=== PATIENT | female | born 1925 | race Caucasian/White ===

== ENCOUNTER → 2016-11-05 | Outpatient (CLI) | payer OTHER ==
[~2016-11-05] MED LIST: ESCI10TA17 PO; ESTRADIOL PO; HYDR0.2C10 TOP; LEVO-217 PO; METO100T7 PO; PANT1TAB48 PO; ZOLP10TA PO
[2016-11-05 13:24] LABS: BASO % 0.3 %; BASO ABS # 0.02 K/uL (0-0.2); COMPLETE YES; HEMATOCRIT 32.5 % (37-47); LYMPH % 26.2 %; LYMPH ABS # 1.55 K/uL (1.2-3.4); MEAN CELL VOLUME 97.9 fL (80-100); MEAN CORPUSCULAR HGB CONC 34.8 g/dl (32-36); MEAN PLATELET VOLUME 9.3 fL (7.4-10.4); MONO % 10.6 %; NEUT % 61.9 %; PLATELET COUNT 160 K/uL (130-400); RED BLOOD COUNT 3.32 M/uL (4.2-5.4); WHITE BLOOD COUNT 5.92 K/uL (4.8-10.8)
[2016-11-05 14:43] LABS: ALT/SGPT 20 U/L (12-78); AST/SGOT 16 U/L (15-37); BLOOD UREA NITROGEN 17 mg/dl (7-18); BUN/CREATININE RATIO 18.1 (10-20); CARBON DIOXIDE 28 mmol/L (21-32); CHLORIDE 99 mmol/L (98-107); CREATININE 0.94 mg/dl (0.60-1.20); GLUCOSE 69 mg/dl (70-99); POTASSIUM 4.6 mmol/L (3.5-5.1); SODIUM 133 mmol/L (136-145)
[2016-11-05 14:55] LABS: ALB/GLOB RATIO 1.1 (0.9-2); ALKALINE PHOSPHATASE 83 U/L (45-117); CHOLESTEROL 160 mg/dl (0-200); CHOLESTEROL/HDL RATIO 2.5; FERRITIN 53.8 ng/ml (8.0-388.0); HDL CHOLESTEROL 65 mg/dl; LDL CHOLESTEROL CALCULATED 80 mg/dl; TRIGLYCERIDES 76 mg/dl (0-150); VERY LOW DENSITY LIPOPROT CALC 15 mg/dl
== END | disposition home or self-care (01) ==
LOC: C.LABBC 12:21
PROVIDERS: ATTEND Internal Medicine
DX: E04.1 Nontoxic single thyroid nodule (principal)

== ENCOUNTER → 2017-04-23 | Outpatient (CLI) | payer OTHER | END | disposition home or self-care (01) | LOC: C.PAPS 14:11 | PROVIDERS: ATTEND Obstetrics & Gynecology | DX: Z12.4 Encounter for screening for malignant neoplasm of cervix (principal) ==

== ENCOUNTER 2017-06-15 09:27 | Observation (INO) | payer OTHER ==
[~2017-06-15] VITALS: Ht 152.4 cm; Wt 60.0 kg
[~2017-06-15 09:27] MED LIST changes: +PANT1TAB3 PO; -PANT1TAB48 PO
[2017-06-15] MEDS ORDERED: ALBUT/IPRATROP 3MG/0.5MG NEB 3 ML VIAL INH STA (09:54)
[2017-06-15] MEDS ORDERED: SODIUM CHLORIDE 0.9% 500ML 500 ML IV STA (09:54)
[2017-06-15] MEDS ORDERED: ONDANSETRON INJ 2 MG/ML 2 ML VIAL IV STA (09:59)
[2017-06-15] MEDS ORDERED: FAMOTIDINE 20MG/5ML IV PUSH IV STA (09:59)
--- NOTE | 2017-06-15 10:10 | DIAGNOSTIC IMAGING REPORT ---
CHEST ONE VIEW PORTABLE HISTORY: 89 years-old Female CHEST PAIN acute atypical chest pain COMPARISON: Chest radiographs 06/18/2010 TECHNIQUE: Portable AP view of the chest FINDINGS: Cardiomediastinal and hilar silhouettes are within normal limits. Calcified left hilar lymph nodes. Atherosclerosis of the aorta. The patient is slightly rotated. No pneumothorax, pleural effusion, focal airspace consolidation or overt pulmonary edema. Subsegmental left basilar opacities suggest atelectasis or scarring. Bones of the chest appear grossly intact. IMPRESSION: No acute cardiopulmonary process. The above report was generated using voice recognition software. It may contain grammatical, syntax or spelling errors. Electronically signed by: Rahul Marti M.D. 06/15/2017 10:09 AM Dictated Date/Time: 06/15/2017 10:07 AM
[2017-06-15 10:26] LABS: BASO % 0.1 %; BASO ABS # 0.01 K/uL (0-0.2); COMPLETE YES; EOS % 0.1 %; HEMATOCRIT 30.4 % (37-47); IG% 0.5 %; LYMPH % 18.3 %; LYMPH ABS # 1.51 K/uL (1.2-3.4); MEAN CELL VOLUME 93.8 fL (80-100); MEAN CORPUSCULAR HEMOGLOBIN 34.6 pg (25-34); MEAN CORPUSCULAR HGB CONC 36.8 g/dl (32-36); MEAN PLATELET VOLUME 8.3 fL (7.4-10.4); MONO % 10.5 %; NEUT % 70.5 %; PLATELET COUNT 207 K/uL (130-400); RED BLOOD COUNT 3.24 M/uL (4.2-5.4); WHITE BLOOD COUNT 8.27 K/uL (4.8-10.8)
--- NOTE | 2017-06-15 10:26 | EMERGENCY ROOM VISIT NOTE ---
History Report prepared by Yayo: Reyna Rosales Under the Supervision of: Dr. Rakan Johnston M.D. First contact with patient: 09:52 Chief Complaint: RESPIRATORY PROBLEMS Stated Complaint: PNEUMONIA Nursing Triage Summary: Relates that she was diagnosed with pneumonia yesterday when she went to Dr. Pradip che. She relates that she did not have an xray. She was placed on Levaquin and had one dose. She does not feel better. She relates that she began having difficulty approximately 2 weeks prior and has yellow thick secretions. Her sao2 is 99% on RA. 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 She notes productive cough with yellow sputum, congestion, and intermittent fevers. She denies diarrhea. The patient was recently seen by her PCP yesterday and was diagnosed with pneumonia and prescribed antibiotics. The patient notes that she feels worse than yesterday. She notes the antibiotics made her sick. The patient is hard of hearing. She denies a history of smoking. She denies a history of CHF. She is not taking any blood thinners. The patient has a history of atrial fibrillation. 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 Review of Systems See HPI for pertinent positives and negatives. A total of ten systems were reviewed and were otherwise negative. Past Medical & Surgical Medical Problems: (1) Atrial fibrillation (2) Hyponatremia (3) Hypothyroidism (4) Stomach problems Surgical Problems: (1) H/O: hysterectomy Family History Heart disease Social History Smoking Status: Never Smoker Smokeless Tobacco Use: No Alcohol Use: none Drug Use: none Housing Status: lives with family Occupation Status: unemployed Current/Historical Medications Scheduled Aspirin (Aspirin Ec), 81 MG PO DAILY Escitalopram (Lexapro), 10 MG PO DAILY Estradiol (Estradiol), 0.5 MG PO DAILY Levofloxacin (Levaquin), 750 MG PO DAILY Levothyroxine Sodium (Synthroid), 50 MCG PO DAILY Metoprolol Succ (Toprol Xl) (Toprol-Xl ), 150 MG PO QAM Multivitamin (Multivitamin), 1 TAB PO DAILY Pantoprazole (Protonix), 40 MG PO DAILY Zolpidem Tartrate (Ambien), 5 MG PO HS Allergies Coded Allergies: Sulfa Drugs (Unverified Allergy, Mild, HIVES, 06/15/17) Hydrocortisone (Verified Allergy, Unknown, 06/15/17) Ibuprofen (Verified Allergy, Unknown, 06/15/17) Penicillins (Verified Allergy, Unknown, 06/15/17) Physical Exam Vital Signs Date Time Temp Pulse Resp B/P (MAP) Pulse Ox O2 Delivery O2 Flow Rate FiO2 06/15/17 13:01 80 20 151/83 99 Room Air 06/15/17 12:40 98 Room Air 06/15/17 11:45 76 20 171/86 98 06/15/17 09:44 100 Room Air 06/15/17 09:44 99 Room Air 06/15/17 09:43 66 06/15/17 09:29 36.3 71 18 162/74 96 Room Air Physical Exam GENERAL: Awake, alert, uncomfortable-appearing, in no distress HENT: Normocephalic, atraumatic. Oropharynx unremarkable. EYES: Normal conjunctiva. Sclera non-icteric. NECK: Supple. No nuchal rigidity. FROM. No JVD. RESPIRATORY: Scattered bronchi wheezes throughout. CARDIAC: Regular rate, normal rhythm. Extremities warm and well perfused. Pulses equal. ABDOMEN: Soft, non-distended. No tenderness to palpation. No rebound or guarding. No masses. RECTAL: Deferred. MUSCULOSKELETAL: Chest examination reveals no tenderness. The back is symmetrical on inspection without obvious abnormality. There is no CVA tenderness to palpation. No joint edema. LOWER EXTREMITIES: Calves are equal size bilaterally and non-tender. No edema. No discoloration. NEURO: Normal sensorium. No sensory or motor deficits noted. SKIN: No rash or jaundice noted. Medical Decision & Procedures ER Provider Diagnostic Interpretation: Radiology results as stated below per my review and radiologist interpretation: CHEST ONE VIEW PORTABLE HISTORY: 89 years-old Female CHEST PAIN acute atypical chest pain COMPARISON: Chest radiographs 06/18/2010 TECHNIQUE: Portable AP view of the chest FINDINGS: Cardiomediastinal and hilar silhouettes are within normal limits. Calcified left hilar lymph nodes. Atherosclerosis of the aorta. The patient is slightly rotated. No pneumothorax, pleural effusion, focal airspace consolidation or overt pulmonary edema. Subsegmental left basilar opacities suggest atelectasis or scarring. Bones of the chest appear grossly intact. IMPRESSION: No acute cardiopulmonary process. The above report was generated using voice recognition software. It may contain grammatical, syntax or spelling errors. Electronically signed by: Rahul Marti M.D. 06/15/2017 10:09 AM Dictated Date/Time: 06/15/2017 10:07 AM Laboratory Results 06/15/17 10:15 Red Blood Count 3.24, Mean Corpuscular Volume 93.8, Mean Corpuscular Hemoglobin 34.6, Mean Corpuscular Hemoglobin Concent 36.8, Mean Platelet Volume 8.3, Neutrophils (%) (Auto) 70.5, Lymphocytes (%) (Auto) 18.3, Monocytes (%) (Auto) 10.5, Eosinophils (%) (Auto) 0.1, Basophils (%) (Auto) 0.1, Neutrophils # (Auto ) 5.83, Lymphocytes # (Auto) 1.51, Monocytes # (Auto) 0.87, Eosinophils # (Auto ) 0.01, Basophils # (Auto) 0.01 06/15/17 10:15 Test 06/15/17 10:15 06/15/17 10:25 06/15/17 12:00 White Blood Count 8.27 K/uL (4.8-10.8) Red Blood Count 3.24 M/uL (4.2-5.4) Hemoglobin 11.2 g/dL (12.0-16.0) Hematocrit 30.4 % (37-47) Mean Corpuscular Volume 93.8 fL (80-100) Mean Corpuscular Hemoglobin 34.6 pg (25-34) Mean Corpuscular Hemoglobin Concent 36.8 g/dl (32-36) Platelet Count 207 K/uL (130-400) Mean Platelet Volume 8.3 fL (7.4-10.4) Neutrophils (%) (Auto) 70.5 % Lymphocytes (%) (Auto) 18.3 % Monocytes (%) (Auto) 10.5 % Eosinophils (%) (Auto) 0.1 % Basophils (%) (Auto) 0.1 % Neutrophils # (Auto) 5.83 K/uL (1.4-6.5) Lymphocytes # (Auto) 1.51 K/uL (1.2-3.4) Monocytes # (Auto) 0.87 K/uL (0.11-0.59) Eosinophils # (Auto) 0.01 K/uL (0-0.5) Basophils # (Auto) 0.01 K/uL (0-0.2) RDW Standard Deviation 43.4 fL (36.4-46.3) RDW Coefficient of Variation 12.6 % (11.5-14.5) Immature Granulocyte % (Auto) 0.5 % Immature Granulocyte # (Auto) 0.04 K/uL (0.00-0.02) Anion Gap 8.0 mmol/L (3-11) Est Creatinine Clear Calc Drug Dose 36.3 ml/min Estimated GFR () 70.4 Estimated GFR (Non- 60.7 BUN/Creatinine Ratio 10.5 (10-20) Osmolality 255 mOsm/kg (280-300) Calcium Level 8.8 mg/dl (8.5-10.1) Total Bilirubin 0.8 mg/dl (0.2-1) Direct Bilirubin 0.2 mg/dl (0-0.2) Aspartate Amino Transf (AST/SGOT) 17 U/L (15-37) Alanine Aminotransferase (ALT/SGPT) 14 U/L (12-78) Alkaline Phosphatase 73 U/L (45-117) Troponin I < 0.015 ng/ml (0-0.045) Pro-B-Type Natriuretic Peptide 3947 pg/ml (0-1800) Total Protein 7.0 gm/dl (6.4-8.2) Albumin 2.9 gm/dl (3.4-5.0) Lipase 74 U/L (73-393) Thyroid Stimulating Hormone (TSH) 2.190 uIu/ml (0.300-4.500) Influenza Type A (RT-PCR) Neg for Influ A (NEG) Influenza Type A Antigen Neg for Influ A (NEG) Influenza Type B Antigen Neg for Influ B (NEG) Influenza Type B (RT-PCR) Neg for Influ B (NEG) Urine Color DK YELLOW Urine Appearance CLEAR (CLEAR) Urine pH 7.5 (4.5-7.5) Urine Specific [place] 1.013 (1.000-1.030) Urine Protein NEG (NEG) Urine Glucose (UA) NEG (NEG) Urine Ketones TRACE (NEG) Urine Occult Blood NEG (NEG) Urine Nitrite NEG (NEG) Urine Bilirubin NEG (NEG) Urine Urobilinogen NEG (NEG) Urine Leukocyte Esterase NEG (NEG) Laboratory results reviewed by me Medications Administered Medications (Trade) Dose Ordered Sig/Maria Ines Route Start Time Stop Time Status Last Admin Dose Admin Sodium Chloride 500 ml @ 999 mls/hr Q31M STAT IV 06/15/17 09:54 06/15/17 10:24 DC 06/15/17 09:54 999 MLS/HR Albuterol/ Ipratropium (Duoneb) 3 ml NOW STAT INH 06/15/17 09:54 06/15/17 09:59 DC 06/15/17 10:20 3 ML Ondansetron HCl (Zofran Inj) 4 mg NOW STAT IV 06/15/17 09:59 06/15/17 10:01 DC 06/15/17 10:20 4 MG Famotidine (Pepcid 20mg Iv Push) 20 mg NOW STAT IV 06/15/17 09:59 06/15/17 10:01 DC 06/15/17 10:20 20 MG Azithromycin (Zithromax Tab) 500 mg NOW STAT PO 06/15/17 12:16 06/15/17 12:17 DC 06/15/17 12:31 500 MG ECG Indication: SOB/dyspnea Rate (beats per minute): 75 Rhythm: atrial fibrillation Findings: no acute ischemic change, other (Normal axis.) Change: Similar when compared to 06/18/2010. ED Course 0952: The patient was evaluated in room B12B. A complete history and physical exam was performed. 1200: I reassessed the patient at this time. She is feeling better and resting comfortably. 1225: I spoke with Dr. Nash, hospitalist. We discussed the patients case. The patient will be evaluated by the [facility] for further management. 1243: I reassessed the patient at this time. She is feeling better and resting comfortably. We discussed her history of arrhythmia; she confirmed she is not on any blood thinners. Medical Decision I reviewed the patient's past medical history, medications, and the nursing notes as described above. The patient's presentation and history were concerning for PNA, Bronchitis, ACS CHF, and PE. The patient is an 89-year-old woman with a past medical history of A. fib not on Coumadin who presents emergency Department with persistent cough congestion shortness of breath after being seen at her PCPs yesterday and started on Levaquin presumptively for pneumonia per history of present illness. Arrival the patient is fatigued appearing but in no acute distress, afebrile stable vital signs. EKG shows rate controlled A. fib no signs of acute ischemia. Labs are notable for a sodium of 123. Otherwise patients chest x-ray is clear. BNP 3000 likely related to the patients A. fib. Given the patient's cough and congestion will treat for bronchitis with Azithromycin. I d/w patient her Afib and denies every being recommended anticoagulation. However, family report that the patient walks with a cane and is a significant fall risk. Given this, will defer decision to admitting after further discussion with patient and family. Case was discussed with Dr. Nash, [facility] hospitalist, who will admit the patient for further management. Medication Reconcilliation Current Medication List: was personally reviewed by me Blood Pressure Screening Patient's blood pressure: Elevated blood pressure Blood pressure disposition: Elevated BP felt to be situational Consults Time Called: 1223 Consulting Physician: Dr. Nash, hospitalist Returned Call: [address] Nash hospitalist. We discussed the patients case. The patient will be evaluated by the [facility] for further management. Impression Primary Impression: Hyponatremia Additional Impression: Bronchitis Scribe Attestation The scribe's documentation has been prepared under my direction and personally reviewed by me in its entirety. I confirm that the note above accurately reflects all work, treatment, procedures, and medical decision making performed by me. Departure Information Dispostion Being Evaluated By Hospitalist Referrals Steven Urrutia M.D. (PCP) Patient Instructions My [facility] Problem Qualifiers
[2017-06-15 10:44] LABS: ALT/SGPT 14 U/L (12-78); BLOOD UREA NITROGEN 9 mg/dl (7-18); BUN/CREATININE RATIO 10.5 (10-20); CALCIUM 8.8 mg/dl (8.5-10.1); CARBON DIOXIDE 23 mmol/L (21-32); CHLORIDE 93 mmol/L (98-107); CREATININE 0.85 mg/dl (0.60-1.20); GLUCOSE 103 mg/dl (70-99); POTASSIUM 4.1 mmol/L (3.5-5.1); SODIUM 123 mmol/L (136-145)
[2017-06-15 10:53] LABS: ALKALINE PHOSPHATASE 73 U/L (45-117); AST/SGOT 17 U/L (15-37)
[2017-06-15] MEDS ORDERED: MULT-506 PO (11:05)
[2017-06-15] MEDS ORDERED: ESTR0.5T3 PO (11:05)
[2017-06-15] MEDS ORDERED: ZOLP5TAB PO (11:05)
[2017-06-15] MEDS ORDERED: LEVO1TAB35 PO (11:05)
[2017-06-15] MEDS ORDERED: ESCI10TA17 PO (11:05)
[2017-06-15] MEDS ORDERED: LEVO50TA PO (11:05)
[2017-06-15] MEDS ORDERED: ASPI81TA28 PO (11:05)
[2017-06-15] MEDS ORDERED: METO100T44 PO (11:05)
[2017-06-15] MEDS ORDERED: PANT40TA PO (11:05)
[2017-06-15 11:52] LABS: INFLUENZA A PCR Neg for Influ A (NEG); INFLUENZA B PCR Neg for Influ B (NEG)
[2017-06-15 12:08] LABS: URINE APPEARANCE CLEAR (CLEAR); URINE BILIRUBIN NEG (NEG); URINE COLOR DK YELLOW; URINE NITRITE NEG (NEG); URINE PH 7.5 (4.5-7.5); URINE SPECIFIC GRAVITY 1.013 (1.000-1.030); UROBILINOGEN NEG (NEG); ZZUR CULT IF INDIC CLEAN CATCH NO
[2017-06-15 12:11] LABS: MANUAL MICROSCOPIC REQUIRED? NO; REVIEW REQ? NO
[2017-06-15] MEDS ORDERED: AZITHROMYCIN 250 MG TAB PO STA (12:16)
[2017-06-15 12:40] VITALS: O2SAT 98; Ht 152.4 cm; Wt 60.0 kg
[2017-06-15] MEDS ORDERED: LEVOFLOXACIN 750 MG TAB PO ONE (13:48)
[2017-06-15] MEDS ORDERED: POLYETHYLENE (MIRALAX) 17 GM PACK PO PRN (14:00)
[2017-06-15] MEDS ORDERED: ACETAMINOPHEN 325 MG TAB PO PRN (14:00)
[2017-06-15] MEDS ORDERED: ALUMINUM/MAGNESIUM/SIMETH (MAALOX MAX) 30 ML UDC PO PRN (14:00)
[2017-06-15] MEDS ORDERED: ONDANSETRON INJ 2 MG/ML 2 ML VIAL IV PRN (14:00)
[2017-06-15] MEDS ORDERED: MAGNESIUM HYDROXIDE SUSP 30 ML UDC PO PRN (14:00)
[2017-06-15] MEDS ORDERED: IV FLUIDS COMPLETED PRN (14:15)
--- NOTE | 2017-06-15 14:26 | History and Physical ---
History & Physical Date & Time of Service: Jun 15, 2017 at 14:01 Chief Complaint: Pneumonia Primary Care Physician: Steven Urrutia M.D. History of Present Illness Source: patient, family Patient is an 89 year old female that presented to [facility] with shortness of breath. She notes that she has been more short of breath with exertion over the past two weeks. This has been associated with a productive cough consisting of yellow sputum. She was seen by Dr. Urrutia's PA yesterday and was prescribed levofloxacin for pneumonia but she notes that this made her feel sick. Over the past two weeks she has had nasal congestion, ear fullness, fatigue and weakness. She has had a poor appetite and has been drinking >8 glasses of water daily. In the ED her CXR was normal, she was afebrile and she had no WCC. She was found to have a Na of 123 and therefore the hospitalist team were consulted for admission. Past Medical/Surgical History Medical Problems: (1) Atrial fibrillation Status: Chronic (2) Hypothyroidism Status: Chronic (3) Stomach problems Status: Resolved Surgical Problems: (1) H/O: hysterectomy Status: Resolved Family History Heart disease Social History Smoking Status: Never Smoker Smokeless Tobacco Use: No Alcohol Use: none Drug Use: none Housing status: lives with family Occupational Status: unemployed Immunizations History of Tetanus Vaccine?: No History of Pneumococcal: No History of Hepatitis B Vaccine: No Multi-Drug Resistant Organisms History of MDRO: No Allergies Coded Allergies: Sulfa Drugs (Unverified Allergy, Mild, HIVES, 06/15/17) Hydrocortisone (Verified Allergy, Unknown, 06/15/17) Ibuprofen (Verified Allergy, Unknown, 06/15/17) Penicillins (Verified Allergy, Unknown, 06/15/17) Home Medications Scheduled Aspirin (Aspirin Ec), 81 MG PO DAILY Escitalopram (Lexapro), 10 MG PO DAILY Estradiol (Estradiol), 0.5 MG PO DAILY Levofloxacin (Levaquin), 750 MG PO DAILY Levothyroxine Sodium (Synthroid), 50 MCG PO DAILY Metoprolol Succ (Toprol Xl) (Toprol-Xl ), 150 MG PO QAM Multivitamin (Multivitamin), 1 TAB PO DAILY Pantoprazole (Protonix), 40 MG PO DAILY Zolpidem Tartrate (Ambien), 5 MG PO HS Review of Systems Constitutional: + fever, + weakness, + fatigue, No sweats, No weight loss Eyes: No worsening of vision, No eye pain ENT: + hearing loss (chronic), + nasal symptoms, No trouble swallowing Respiratory: + cough, + sputum, + dyspnea on exertion, No hemoptysis Cardiovascular: No chest pain, No claudication, No palpitations Abdomen: + nausea, No pain, No vomiting, No diarrhea, No constipation, No GI bleeding Musculoskeletal: No joint pain, No muscle pain Genitourinary - Female: No dysuria, No urinary frequency, No urinary urgency Endocrine: + fatigue, No excessive thirst, No excessive urination Integumentary: No rash, No itch, No new/changing skin lesions Physical Exam Vital Signs Date Time Temp Pulse Resp B/P (MAP) Pulse Ox O2 Delivery O2 Flow Rate FiO2 06/15/17 13:01 80 20 151/83 99 Room Air 06/15/17 12:40 98 Room Air 06/15/17 11:45 76 20 171/86 98 06/15/17 09:44 100 Room Air 06/15/17 09:44 99 Room Air 06/15/17 09:43 66 06/15/17 09:29 36.3 71 18 162/74 96 Room Air General Appearance: WD/WN, no apparent distress Eyes: PERRL, sclerae normal ENT: hearing grossly normal, TMs normal, pharynx normal Neck: supple, no adenopathy, no JVD, no carotid bruits, trachea midline Respiratory/Chest: chest non-tender, no respiratory distress, no accessory muscle use, + rhonchi (diffuse rhonchi bilaterally) Cardiovascular: no edema, no murmur, normal peripheral pulses, + irregularly irregular Abdomen/GI: normal bowel sounds, non tender, soft Extremities/Musculoskelatal: normal inspection, no calf tenderness, no pedal edema, non-tender Neurologic/Psych: alert, normal mood/affect, oriented x 3 Skin: normal color, + pertinent finding (normal skin turgor, cap refill<2 seconds) Diagnostics Laboratory Results Results Past 24 Hours Test 06/15/17 10:15 06/15/17 10:25 06/15/17 12:00 Range/Units White Blood Count 8.27 4.8-10.8 K/uL Red Blood Count 3.24 4.2-5.4 M/uL Hemoglobin 11.2 12.0-16.0 g/dL Hematocrit 30.4 37-47 % Mean Corpuscular Volume 93.8 80-100 fL Mean Corpuscular Hemoglobin 34.6 25-34 pg Mean Corpuscular Hemoglobin Concent 36.8 32-36 g/dl Platelet Count 207 130-400 K/uL Mean Platelet Volume 8.3 7.4-10.4 fL Neutrophils (%) (Auto) 70.5 % Lymphocytes (%) (Auto) 18.3 % Monocytes (%) (Auto) 10.5 % Eosinophils (%) (Auto) 0.1 % Basophils (%) (Auto) 0.1 % Neutrophils # (Auto) 5.83 1.4-6.5 K/uL Lymphocytes # (Auto) 1.51 1.2-3.4 K/uL Monocytes # (Auto) 0.87 0.11-0.59 K/uL Eosinophils # (Auto) 0.01 0-0.5 K/uL Basophils # (Auto) 0.01 0-0.2 K/uL RDW Standard Deviation 43.4 36.4-46.3 fL RDW Coefficient of Variation 12.6 11.5-14.5 % Immature Granulocyte % (Auto) 0.5 % Immature Granulocyte # (Auto) 0.04 0.00-0.02 K/uL Sodium Level 123 136-145 mmol/L Potassium Level 4.1 3.5-5.1 mmol/L Chloride Level 93 98-107 mmol/L Carbon Dioxide Level 23 21-32 mmol/L Anion Gap 8.0 3-11 mmol/L Blood Urea Nitrogen 9 7-18 mg/dl Creatinine 0.85 0.60-1.20 mg/dl Est Creatinine Clear Calc Drug Dose 36.3 ml/min Estimated GFR () 70.4 Estimated GFR (Non- 60.7 BUN/Creatinine Ratio 10.5 10-20 Random Glucose 103 70-99 mg/dl Calcium Level 8.8 8.5-10.1 mg/dl Total Bilirubin 0.8 0.2-1 mg/dl Direct Bilirubin 0.2 0-0.2 mg/dl Aspartate Amino Transf (AST/SGOT) 17 15-37 U/L Alanine Aminotransferase (ALT/SGPT) 14 12-78 U/L Alkaline Phosphatase 73 45-117 U/L Troponin I < 0.015 0-0.045 ng/ml Pro-B-Type Natriuretic Peptide 3947 0-1800 pg/ml Total Protein 7.0 6.4-8.2 gm/dl Albumin 2.9 3.4-5.0 gm/dl Lipase 74 73-393 U/L Influenza Type A (RT-PCR) Neg for Influ A NEG Influenza Type A Antigen Neg for Influ A NEG Influenza Type B Antigen Neg for Influ B NEG Influenza Type B (RT-PCR) Neg for Influ B NEG Urine Color DK YELLOW Urine Appearance CLEAR CLEAR Urine pH 7.5 4.5-7.5 Urine Specific [place] 1.013 1.000-1.030 Urine Protein NEG NEG Urine Glucose (UA) NEG NEG Urine Ketones TRACE NEG Urine Occult Blood NEG NEG Urine Nitrite NEG NEG Urine Bilirubin NEG NEG Urine Urobilinogen NEG NEG Urine Leukocyte Esterase NEG NEG CXR normal EKG Atrial fibrillation Impression Assessment and Plan 89 year old female currently being treated as an outpatient for pneumonia was brought to the ED for shortness of breath and was found to have a sodium of 123. She is euvolemic on examination. Euvolemic Hyponatremia - Differential includes primary polydypsia, hypothyroidism, SIADH, glucocorticoid insufficiency - will order serum osm, urine osm and urine sodium levels - will fluid restrict currently to 1500ml due to euvolemic state - repeat sodium in the morning Community Acquired Pneumonia - CXR normal here but patient short of breath and bringing up green sputum - diagnosed as outpatient - finish azithromycin 250mg for 4 more days to finish 5 day course - prescribe flonase nasal spray and zyrtec 10mg Atrial Fibrillation (rate controlled) - continue metoprolol - on aspirin - may need to consider warfarin as outpatient as [id number] score of 3 Hypothyroidism - continue levothyroxine and check TSH Depression - continue lexapro Gerd - continue pantoprazole Insomnia - continue ambien DVT prophylaxis - lovenox 40subq Dispo: lives with daughter and is able to do majority of chores at home without help from others, if sodium corrects then patient will be able to go home tomorrow Level of Care Med/Surg Advanced Directives Existing Living Will: Yes Existing Power of Paper Deliverer: Yes VTE Prophylaxis VTE Risk Assessment Done? Y/N: Yes Risk Level: Low Given or contraindicated: Enoxaparin (Lovenox)SQ
[2017-06-15 15:00] VITALS: BP 162/79; PULSE 86; TEMP 36.7; O2SAT 96; O2SAT 97
[2017-06-15] MEDS ORDERED: PNEUMOCOCCAL ADMINISTRATION CHARGE ONE (15:15)
[2017-06-15] MEDS ORDERED: PNEUMOCOCCAL POLYSACCHARIDES 25 MCG/0.5 ML VIAL/SYR IM. ONE (15:15)
[2017-06-15 15:57] LABS: PROTHROMBIN TIME (PATIENT) 10.7 SECONDS (9.0-12.0)
[2017-06-15] MEDS: CETIRIZINE HCL 10 MG TAB PO ONE ×2 (16:08→17:33)
[2017-06-15] MEDS ORDERED: ENOXAPARIN 30 MG/0.3 ML SYR SQ SCH (18:00)
[2017-06-15] MEDS: FLUTICASONE PROPIONATE NA SPR 16 GM BTL SCH (20:26)
[2017-06-15] MEDS ORDERED: ZOLPIDEM TARTRATE 5 MG TAB PO SCH (21:00)
[2017-06-16 00:21] VITALS: BP 159/78; PULSE 81; TEMP 37.1; O2SAT 95
[2017-06-16] MEDS ORDERED: LEVOTHYROXINE 50 MCG TAB PO SCH ×2 (06:30→09:00)
[2017-06-16 07:07] VITALS: BP 169/84; PULSE 83; TEMP 37.2; O2SAT 96
[2017-06-16 07:15] LABS: HEMATOCRIT 32.2 % (37-47); MEAN CELL VOLUME 95.3 fL (80-100); MEAN CORPUSCULAR HEMOGLOBIN 33.4 pg (25-34); MEAN CORPUSCULAR HGB CONC 35.1 g/dl (32-36); MEAN PLATELET VOLUME 8.4 fL (7.4-10.4); PLATELET COUNT 240 K/uL (130-400); RED BLOOD COUNT 3.38 M/uL (4.2-5.4); WHITE BLOOD COUNT 6.82 K/uL (4.8-10.8)
--- NOTE | 2017-06-16 07:31 | Family Medicine Progress Note ---
Progress Note Date of Service Jun 16, 2017. Subjective Pt evaluation today including: conversation w/ patient, physical exam, chart review, lab review Constitutional: No fever, No chills, No sweats ENT: No hearing loss Respiratory: No cough, No sputum, No wheezing, No shortness of breath Cardiovascular: No chest pain Abdomen: No pain, No nausea, No vomiting, No diarrhea Female : No dysuria Psychiatric: No depression symptoms Endo: No fatigue Objective Physical Exam General Appearance: WD/WN, no apparent distress Eyes: PERRL, EOMI Respiratory/Chest: chest non-tender, lungs clear, normal breath sounds, no respiratory distress, no accessory muscle use Cardiovascular: no edema, no gallop, no JVD, no murmur, + irregularly irregular Abdomen: normal bowel sounds, non tender, soft, no organomegaly, no pulsatile mass Extremities: normal range of motion, non-tender, normal inspection, no pedal edema, no calf tenderness 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
[2017-06-16 07:32] LABS: BUN/CREATININE RATIO 8.8 (10-20); CALCIUM 8.8 mg/dl (8.5-10.1); CREATININE 0.82 mg/dl (0.60-1.20); MAGNESIUM 1.8 mg/dl (1.8-2.4); POTASSIUM 3.6 mmol/L (3.5-5.1)
[2017-06-16 07:33] LABS: PHOSPHORUS 3.3 mg/dl (2.5-4.9)
[2017-06-16 08:00] VITALS: O2SAT 96
[2017-06-16] MEDS: FLUTICASONE PROPIONATE NA SPR 16 GM BTL SCH (08:05)
[2017-06-16] MEDS ORDERED: MULTIVITAMIN TAB PO SCH (09:00)
[2017-06-16] MEDS ORDERED: ESTRADIOL 1 MG TAB PO SCH (09:00)
[2017-06-16] MEDS ORDERED: PANTOprazole SOD 40 MG TAB PO SCH (09:00)
[2017-06-16] MEDS ORDERED: ESCITALOPRAM OXALATE 10 MG TAB PO SCH (09:00)
[2017-06-16] MEDS ORDERED: CETIRIZINE HCL 10 MG TAB PO SCH (09:00)
[2017-06-16] MEDS ORDERED: ASPIRIN 81 MG ECTAB PO SCH (09:00)
[2017-06-16] MEDS ORDERED: AZITHROMYCIN 250 MG TAB PO SCH (09:00)
[2017-06-16] MEDS ORDERED: METOPROLOL SUCC 50MG EXT REL TAB PO SCH (09:00)
[2017-06-16] MEDS ORDERED: LEVOFLOXACIN 750 MG TAB PO SCH (09:00)
--- NOTE | 2017-06-16 12:36 | ECHOCARDIOGRAM REPORT ---
*NOTICE TO RECEIVING CONSTITUTION PARTY AGENCY This information is strictly Confidential and protected under [place] law. [place] law prohibits you from making any further disclosure of this information unless further disclosure is expressly permitted by the written consent of the person to whom it pertains or is authorized by law. A general authorization for the release of medical or other information is not sufficient for this purpose. Hospital accepts no responsibility if the information is made available to any other person, INCLUDING THE PATIENT. Interpretation Summary * Name: QAMAR LINARES Study Date: 06/15/2017 03:05 PM BP: 152/80 mmHg * Patient Location: .[id number]\W256\S\2 HR: 86 * : 1925 (M/d/yyyy) Gender: Female Height: 60 in * Age: 89 yrs Ethnicity: CA Weight: 132 lb * Ordering Physician: Gerald Nash * Referring Physician: Self, Referred * Performed By: Margaux Norris RDCS * * Reason For Study: AFIB * BSA: 1.6 m2 * -- Conclusions -- * Left ventricular systolic function is normal. * No regional wall motion abnormalities noted. * Ejection Fraction = 55-60%. * There is mild concentric left ventricular hypertrophy. * There is mild mitral regurgitation. Procedure Details * A complete two-dimensional transthoracic echocardiogram was performed (2D, M-mode, Doppler and color flow Doppler). Left Ventricle * The left ventricle is normal in size. * There is mild concentric left ventricular hypertrophy. * Ejection Fraction = 55-60%. * Left ventricular systolic function is normal. * No regional wall motion abnormalities noted. Right Ventricle * The right ventricle is not well visualized. * The right ventricular systolic function is normal as assessed by tricuspid annular plane systolic excursion (TAPSE) (normal >1.5 cm). Atria * The left atrium is mildly dilated. * Right atrial size is normal. * No ASD detected; PFO is not assessed. Mitral Valve * The mitral valve is grossly normal. * There is no mitral valve stenosis. * There is mild mitral regurgitation. Tricuspid Valve * The tricuspid valve is not well visualized, but is grossly normal. * There is no tricuspid stenosis. * There is mild tricuspid regurgitation. * Right ventricular systolic pressure is normal. Aortic Valve * The aortic valve is trileaflet. * The aortic valve opens well. * Aortic valve sclerosis mild, without significant aortic valvular stenosis. * Trace aortic regurgitation. Pulmonic Valve * The pulmonary valve is not well seen, but the Doppler examination is normal without significant regurgitation or stenosis. Great Vessels * The aortic root is normal size. * The pulmonary is not well visualized. Pericardium/Pleural * There is no pericardial effusion. Great Vessels * Normal inferior vena cava size and collapsability with sniff indicates a normal right atrial pressure of 3 mmHg MMode 2D Measurements and Calculations IVSd 1.1 cm IVSs 1.7 cm LVIDd 3.8 cm LVIDs 2.7 cm LVPWd 1.5 cm LVPWs 1.7 cm IVS/LVPW 0.69 FS 29.7 % EDV(Teich) 63.0 ml ESV(Teich) 26.8 ml EF(Teich) 57.5 % EDV(cubed) 56.0 ml ESV(cubed) 19.5 ml EF(cubed) 65.3 % % IVS thick 57.6 % % LVPW thick 10.6 % LV mass(C)d 172.1 grams LV mass(C)dI 110.0 grams/m\S\2 LV mass(C)s 166.8 grams LV mass(C)sI 106.6 grams/m\S\2 SV(Teich) 36.2 ml SI(Teich) 23.1 ml/m\S\2 SV(cubed) 36.6 ml SI(cubed) 23.4 ml/m\S\2 Ao root diam 2.7 cm Ao root area 5.7 cm\S\2 LA dimension 3.9 cm LA/Ao 1.4 LVAd ap4 19.6 cm\S\2 LVLd ap4 6.3 cm EDV(MOD-sp4) 51.8 ml EDV(sp4-el) 52.0 ml LVAs ap4 12.4 cm\S\2 LVLs ap4 5.3 cm ESV(MOD-sp4) 24.7 ml ESV(sp4-el) 24.6 ml EF(MOD-sp4) 52.4 % EF(sp4-el) 52.7 % LVAd ap2 22.5 cm\S\2 LVLd ap2 6.7 cm EDV(MOD-sp2) 62.3 ml EDV(sp2-el) 63.9 ml LVAs ap2 13.3 cm\S\2 LVLs ap2 5.5 cm ESV(MOD-sp2) 27.0 ml ESV(sp2-el) 26.9 ml EF(MOD-sp2) 56.6 % EF(sp2-el) 57.9 % LVLd %diff 6.3 % EDV(MOD-bp) 59.4 ml LVLs %diff 4.5 % ESV(MOD-bp) 26.0 ml EF(MOD-bp) 56.2 % SV(MOD-sp4) 27.2 ml SI(MOD-sp4) 17.4 ml/m\S\2 SV(MOD-sp2) 35.3 ml SI(MOD-sp2) 22.6 ml/m\S\2 SV(MOD-bp) 33.4 ml SI(MOD-bp) 21.4 ml/m\S\2 SV(sp4-el) 27.4 ml SI(sp4-el) 17.5 ml/m\S\2 SV(sp2-el) 37.0 ml SI(sp2-el) 23.7 ml/m\S\2 Doppler Measurements and Calculations MV E max jeannette 114.9 cm/sec MV dec time 0.24 sec Ao V2 max 150.7 cm/sec Ao max PG 9.1 mmHg Ao max PG (full) 4.5 mmHg AI max jeannette 386.5 cm/sec AI max PG 59.8 mmHg AI dec slope 217.7 cm/sec\S\2 AI P1/2t 520.0 msec LV V1 max PG 4.6 mmHg LV V1 max 106.8 cm/sec TR max jeannette 266.6 cm/sec
[2017-06-16 14:49] VITALS: BP 133/80; PULSE 73; TEMP 37.5; O2SAT 96
[2017-06-16] MEDS ORDERED: AZIT-57 PO (15:55)
--- NOTE | 2017-06-16 16:13 | Discharge Summary ---
Discharge Summary Date of Service Jun 16, 2017. Discharge Summary Admission Date: Jun 15, 2017 at 13:54 Discharge Date: Jun 16, 2017 Discharge Disposition: Home Principal Diagnosis: Pneumonia and Hyponatremia Immunizations: History of Tetanus Vaccine?: No History of Pneumococcal: No History of Hepatitis B Vaccine: No Procedures: ECHOCARDIOGRAM * Left ventricular systolic function is normal. * No regional wall motion abnormalities noted. * Ejection Fraction = 55-60%. * There is mild concentric left ventricular hypertrophy. * There is mild mitral regurgitation. CHEST ONE VIEW PORTABLE HISTORY: 89 years-old Female CHEST PAIN acute atypical chest pain COMPARISON: Chest radiographs 06/18/2010 TECHNIQUE: Portable AP view of the chest FINDINGS: Cardiomediastinal and hilar silhouettes are within normal limits. Calcified left hilar lymph nodes. Atherosclerosis of the aorta. The patient is slightly rotated. No pneumothorax, pleural effusion, focal airspace consolidation or overt pulmonary edema. Subsegmental left basilar opacities suggest atelectasis or scarring. Bones of the chest appear grossly intact. IMPRESSION: No acute cardiopulmonary process. Medication Reconciliation New Medications: Azithromycin (Azithromycin) 250 Mg Tab 250 MG PO QAM for 3 Days, #3 TAB Continued Medications: Aspirin (Aspirin Ec) 81 Mg Tab 81 MG PO DAILY Escitalopram (Lexapro) 10 Mg Tab 10 MG PO DAILY, TAB Estradiol (Estradiol) 0.5 Mg Tab 0.5 MG PO DAILY for 30 Days, #90 TAB 3 Refills Levothyroxine Sodium (Synthroid) 50 Mcg Tab 50 MCG PO DAILY, TAB Metoprolol Succ (Toprol Xl) (Toprol-Xl ) 100 Mg Tabcr 150 MG PO QAM, TAB Multivitamin (Multivitamin) Tab 1 TAB PO DAILY, TAB Pantoprazole (Protonix) 40 Mg Tab 40 MG PO DAILY, #30 TAB Zolpidem Tartrate (Ambien) 5 Mg Tab 5 MG PO HS, TAB Discontinued Medications: Levofloxacin (Levaquin) 750 Mg Tab 750 MG PO DAILY for 7 Days, #7 TAB STARTED 06/14/17 Discharge Exam The patient was seen and examined at bedside. No acute overnight events. Patient is resting comfortably in bed. Denies having any pain. Eating and urinating well. Patient is wondering when she can go home - she lives in [place] with her daughter. She feels good at her baseline. PCP is Dr. Urrutia. Understand we are treating a Pneumonia with Azithromycin. She is wondering if she can travel to [place] next week for [place] She understand the importance with outpatient follow up. Plan of care was described to the patient and all questions were answered. Constitutional: No fever, No chills, No sweats ENT: No hearing loss Respiratory: No cough, No sputum, No wheezing, No shortness of breath Cardiovascular: No chest pain Abdomen: No pain, No nausea, No vomiting, No diarrhea Female : No dysuria Psychiatric: No depression symptoms Endo: No fatigue Physical Exam General Appearance: WD/WN, no apparent distress Eyes: PERRL, EOMI Respiratory/Chest: chest non-tender, lungs clear, normal breath sounds, no respiratory distress, no accessory muscle use Cardiovascular: no edema, no gallop, no JVD, no murmur, + irregularly irregular Abdomen: normal bowel sounds, non tender, soft, no organomegaly, no pulsatile mass Extremities: normal range of motion, non-tender, normal inspection, no pedal edema, no calf tenderness Neurologic/Psychiatric: 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 Pt was being treated as an outpatient for pneumonia with Levoquin since 06/14/2017. Pt was found to have a sodium of 123 and was euvolemic on examination. Per patient she drinks 6-8 ounces of water per day. X-ray showed no infiltrate. Labs were significant for a BNP of 3900, TSH of 2.19, Urine osmolality was 230, urine sodium was 48 and serum osmolality was 255. Trops were negative. An echocardiogram was ordered which was grossly normal. We believe that the patient's symptoms were from a combination of pneumonia and hyponatremia from polydipsia. Patient was put on fluid restriction of 1500mL per day. On Hospital Day #1 the sodium was corrected to 128 and the patient showed clinical improvement. Per chart review pt appears to have chronically low sodium - maximum Na+ was 133 over multiple admissions in the past 10 years. Our physical therapist saw the patient and recommended the patient was able to go home on discharge. On discharge we are are recommending no more than 4 cups of water per day and scheduling PCP follow up with Purnima Leonardo PA-C on June 19 at 11: 00 am. Patient was additionally discharged on PO Azithromycin 250mg daily for the next 3 days for Pneumonia. We also noticed that the patient was not on anticoagulation for Atrial Fibrillation. The patient has had discussions with her PCP in the past about this she states but cannot remember the exact reason she was not on AC. We will defer to outpatient management of AC for Afib. Otherwise all home meds were continued on discharge. Total Time Spent: Greater than 30 minutes (45 min) This includes examination of the patient, discharge planning, medication reconciliation, and communication with other providers. Discharge Instructions Please refer to the electronic Patient Visit Report (Discharge Instructions) for additional information. Additional Copies To Steven Urrutia M.D. Resident Involvement: Resident Care Provided Care Provided: Adult [facility] Medicine Reviewed: Pt Seen/Exam by Me History breathing normal minimal cough Constitutional: denies: fever Respiratory: negative: short of breath Cardiovascular: denies chest pain General Appearance: no apparent distress Respiratory: no respiratory distress, rhonchi (occasional) Cardiovascular: regular rate, rhythm Gastrointestinal: soft Neurologic/Psychiatric: alert, oriented x 3 Skin Characteristics: warm/dry Assessment/Plan Resident Physician Supervision Note: I independently interviewed and examined the patient and verified the davies history and physical, reviewed labs and image studies, discussed the case with the resident Dr. Weir and agree with the findings and care plan. Time spent in discharge 35 min
--- NOTE | 2017-06-16 16:53 | Discharge Instructions ---
Discharge Instructions Date of Service Jun 16, 2017. Admission Reason for Admission: Hyponatremia Discharge Discharge Diagnosis / Problem: Pneumonia and Hyponatremia Discharge Goals Goal(s): Decrease discomfort, Improve function, Increase independence, Improve disease control, Improve nutritional status, Learn about illness Activity Recommendations Activity Limitations: per Instructions/Follow-up section . Instructions / Follow-Up Instructions / Follow-Up You are being discharged on an Antibiotic called Azithromycin. Information on Azithromycin will be attached to this information packet. Please read this information carefully. You can start taking your Azithromycin on 06/17/2017 in the morning. Take one pill every 24 hours for the next 3 days. We also found that your sodium level was low. We recommend drinking no more than 4 cups of water per day. Information on low sodium will be attached to this information packet. Please read it carefully. The echocardiogram of your heart was normal. A follow up with Purnima Leonardo PA-C in Dr. Urrutia's clinic was made for June 19 at 11:00 am, please keep this appointment. Additionally we recommend going over the reasons of not being on a blood thinner for Atrial Fibrillation with your primary care doctor. Please continue all other home medications. Current Hospital Diet Patient's current hospital diet: Regular Diet Discharge Diet Recommended Diet: AHA Diet (Heart Healthy) Pending Studies Studies pending at discharge: no Medical Emergencies . Who to Call and When: Medical Emergencies: If at any time you feel your situation is an emergency, please call 911 immediately. . Non-Emergent Contact Non-Emergency issues call your: Primary Care Provider . . "Provider Documentation" section prepared by Murtaza Weir. . VTE Core Measure Inpt VTE Proph given/why not?: Enoxaparin (Lovenox)SQ Resident Involvement: Resident Care Provided Care Provided: Adult Hospital Medicine
[2017-06-16 17:59] VITALS: BP 133/80; PULSE 73; TEMP 37.5; O2SAT 96
== END 2017-06-16 18:30 | disposition home or self-care (01) ==
LOC: C.EDB 09:29 → C.MS2W 13:54 → ENRESERV 14:16
PROVIDERS: ADMIT Specialist; ATTEND Family Medicine
DX: J18.9 Pneumonia, unspecified organism (principal); E87.1 Hypo-osmolality and hyponatremia; I48.91 Unspecified atrial fibrillation; E03.9 Hypothyroidism, unspecified; G47.00 Insomnia, unspecified; F32.9 Major depressive disorder, single episode, unspecified; K21.9 Gastro-esophageal reflux disease without esophagitis; Z90.710 Acquired absence of both cervix and uterus; Z79.82 Long term (current) use of aspirin; Z82.49 Family history of ischemic heart disease and other diseases of the circulatory system

== ENCOUNTER → 2017-06-19 | Outpatient (CLI) | payer OTHER ==
[~2017-06-19] MED LIST changes: +ASPI81TA28 PO; +AZIT-57 PO; +ESTR0.5T3 PO; -ESTRADIOL PO; -HYDR0.2C10 TOP; -LEVO-217 PO; +LEVO50TA PO; +METO100T44 PO; -METO100T7 PO; +MULT-506 PO; -PANT1TAB3 PO; +PANT40TA PO; -ZOLP10TA PO; +ZOLP5TAB PO
[2017-06-19 14:49] LABS: BLOOD UREA NITROGEN 17 mg/dl (7-18); BUN/CREATININE RATIO 19.9 (10-20); CALCIUM 9.1 mg/dl (8.5-10.1); CARBON DIOXIDE 26 mmol/L (21-32); CHLORIDE 98 mmol/L (98-107); CREATININE 0.86 mg/dl (0.60-1.20); GLUCOSE 89 mg/dl (70-99); POTASSIUM 3.9 mmol/L (3.5-5.1); SODIUM 128 mmol/L (136-145)
== END | disposition home or self-care (01) ==
LOC: C.LABBC 12:08
PROVIDERS: ATTEND Physician Assistant Medical
DX: E78.1 Pure hyperglyceridemia (principal)

== ENCOUNTER → 2017-06-23 | Outpatient (CLI) | payer OTHER ==
[2017-06-23 15:23] LABS: BLOOD UREA NITROGEN 23 mg/dl (7-18); BUN/CREATININE RATIO 25.5 (10-20); CALCIUM 9.2 mg/dl (8.5-10.1); CARBON DIOXIDE 23 mmol/L (21-32); CHLORIDE 103 mmol/L (98-107); CREATININE 0.89 mg/dl (0.60-1.20); GLUCOSE 116 mg/dl (70-99); POTASSIUM 3.6 mmol/L (3.5-5.1); SODIUM 135 mmol/L (136-145)
== END | disposition home or self-care (01) ==
LOC: C.LAB 13:31
PROVIDERS: ATTEND Physician Assistant Medical
DX: Z00.00 Encounter for general adult medical examination without abnormal findings (principal); E87.1 Hypo-osmolality and hyponatremia; J18.9 Pneumonia, unspecified organism

== ENCOUNTER 2017-07-03 21:24 | Emergency (ER) | payer OTHER ==
[~2017-07-03] VITALS: Ht 152.4 cm; Wt 59.7 kg
[2017-07-03 21:27] VITALS: TEMP 36.8; Ht 152.4 cm; Wt 59.7 kg
[2017-07-03] MEDS ORDERED: APIX1TAB PO (22:02)
[2017-07-03] MEDS ORDERED: SIMV20TA2 PO (22:04)
[2017-07-03] MEDS ORDERED: MELO7.5T5 PO (22:04)
[2017-07-03] MEDS ORDERED: DIGE1TAB PO (22:06)
--- NOTE | 2017-07-03 22:41 | EMERGENCY ROOM VISIT NOTE ---
History Report prepared by Yayo: Radha Jensen Under the Supervision of: Dr. Shakir Rae D.O. First contact with patient: 22:03 Chief Complaint: CARDIAC ASSESSMENT Stated Complaint: Anxious/recent TIA Nursing Triage Summary: Seen in a hospital in [place] last week for TIA and discharged. Came home today and after the [address] reports chills, palpitations, shortness of breath, dizziness. Currently only symptom is minor dizziness. Recently placed on Eliquis. History of Present Illness The patient is an 89 year old female who presents to the Emergency Room for a cardiac assessment. The patient states that she was in [facility] and just got home this evening. She states that when she got out of the car she felt cold. She reports that when she got in her house she was shocked because her kids had had her bathroom redone while she was away. The patient states that she began to tremble, so her daughter gave her a cup of tea. She notes that the house was warm. She states that it felt like she had the chills. She reports that suddenly her heart started to beat really hard and fast. She notes that she started to become short of breath. She states that she is unsure how long the episode lasted, but notes that the Oxygen from EMS helped. The daughter notes that her mother was admitted to the hospital with Bronchitis 3 weeks ago. She notes that she had similar symptoms then, but thinks that the Bronchitis covered it up. She states that while spending the holidays with her, the patient had similar symptoms as tonight. She states that she would become confused with it. She reports that they took her to the hospital there and she had testing done. The daughter reports that she had a Doppler, Echocardiogram, CT and MRI. She states that her mother has a history of atrial fibrillation and that they think they found that she has TIAs. They report that the MRI showed old strokes, but no new. The son notes that she was taken off Aspirin and put on Eliquis. He notes that they took her Metoprol from 150 mg once a day to two 50 mg twice a day. The patient denies experiencing any chest pain. The patient notes that she feels calm now. Source of History: patient, family Onset: this evening Position: other (global) Quality: other (heart racing) Timing: other (episode) Modifying Factors (Relieving): oxygen Associated Symptoms: + chills, + SOB, No chest pain Note: The daughter complains of the patient becoming confused. Review of Systems See HPI for pertinent positives & negatives. A total of 10 systems reviewed and were otherwise negative. Past Medical & Surgical Medical Problems: (1) Atrial fibrillation (2) Hyponatremia (3) Hypothyroidism (4) Stomach problems Surgical Problems: (1) H/O: hysterectomy Family History Heart disease Social History Smoking Status: Never Smoker Alcohol Use: none Drug Use: none Housing Status: lives with family Occupation Status: unemployed Current/Historical Medications Scheduled Apixaban (Eliquis), 2.5 MG PO BID Digestive Enzymes (Digestive Enzymes), 1 TAB PO DAILY Levothyroxine Sodium (Synthroid), 50 MCG PO DAILY Meloxicam (Mobic), 7.5 MG PO DAILY Metoprolol Succ (Toprol Xl) (Toprol-Xl ), 50 MG PO BID Multivitamin (Multivitamin), 1 TAB PO DAILY Pantoprazole (Protonix), 40 MG PO DAILY Simvastatin (Zocor), 20 MG PO QPM Zolpidem Tartrate (Ambien), 2.5 MG PO HS Allergies Coded Allergies: Sulfa Drugs (Unverified Allergy, Mild, HIVES, 07/03/17) Hydrocortisone (Verified Allergy, Unknown, 07/03/17) Ibuprofen (Verified Allergy, Unknown, 07/03/17) Penicillins (Verified Allergy, Unknown, 07/03/17) Physical Exam Vital Signs Date Time Temp Pulse Resp B/P (MAP) Pulse Ox O2 Delivery O2 Flow Rate FiO2 07/03/17 23:00 165/97 07/03/17 22:54 73 24 100 07/03/17 22:39 85 21 92 07/03/17 22:24 76 15 97 07/03/17 22:09 76 22 100 07/03/17 22:00 163/64 07/03/17 21:54 79 27 100 07/03/17 21:39 80 20 100 07/03/17 21:32 165/73 07/03/17 21:32 80 07/03/17 21:27 36.8 79 14 173/85 98 Room Air 07/03/17 21:27 173/85 Physical Exam VITAL SIGNS: were reviewed as above. GENERAL:Non-toxic in appearance. SKIN: Warm dry and pink. HEAD: Normocephalic and atraumatic. OROPHARYNX: Is clear and moist NECK: Supple without lymphadenopathy or meningismus. LUNGS: clear. HEART: Regular rate and rhythm. ABDOMEN: Soft and nontender. EXTREMITIES: Warm and well perfused. NEUROLOGICALLY: Awake alert and oriented without focal deficit. Cranial nerves 2 -12 are intact. There is no pronator drift. Cerebellar testing is within normal limits. There is no nystagmus. There is no facial droop. Speech is clear. Vision is grossly normal. MUSCULOSKELETAL: Good muscle tone. No evidence of trauma. Medical Decision & Procedures ER Provider Diagnostic Interpretation: Radiology results as stated below per my review and radiologist interpretation: CHEST ONE VIEW PORTABLE CLINICAL HISTORY: 89 years-old Female presenting with EVALUATE ALTERED MENTAL STATUS/WEAKNESS. TECHNIQUE: Portable upright AP view of the chest was obtained. COMPARISON: 06/15/2017. FINDINGS: Atherosclerosis of the aortic arch. Cardiac silhouette normal in size. Calcified mediastinal and/or hilar lymph nodes may be present. Lungs and pleural spaces clear. Osseous structures normal. Upper abdomen normal. IMPRESSION: 1. No acute cardiopulmonary disease. Electronically signed by: Steven Skinner M.D. 07/03/2017 10:59 PM Dictated Date/Time: 07/03/2017 10:57 PM Laboratory Results 07/03/17 21:57 Red Blood Count 3.46, Mean Corpuscular Volume 97.1, Mean Corpuscular Hemoglobin 34.1, Mean Corpuscular Hemoglobin Concent 35.1, Mean Platelet Volume 9.7, Neutrophils (%) (Auto) 61.7, Lymphocytes (%) (Auto) 27.2, Monocytes (%) (Auto) 8.8, Eosinophils (%) (Auto) 1.4, Basophils (%) (Auto) 0.6, Neutrophils # (Auto) 3.92, Lymphocytes # (Auto) 1.73, Monocytes # (Auto) 0.56, Eosinophils # (Auto) 0.09, Basophils # (Auto) 0.04 07/03/17 21:57 Test 07/03/17 21:57 07/03/17 22:35 White Blood Count 6.36 K/uL (4.8-10.8) Red Blood Count 3.46 M/uL (4.2-5.4) Hemoglobin 11.8 g/dL (12.0-16.0) Hematocrit 33.6 % (37-47) Mean Corpuscular Volume 97.1 fL (80-100) Mean Corpuscular Hemoglobin 34.1 pg (25-34) Mean Corpuscular Hemoglobin Concent 35.1 g/dl (32-36) Platelet Count 241 K/uL (130-400) Mean Platelet Volume 9.7 fL (7.4-10.4) Neutrophils (%) (Auto) 61.7 % Lymphocytes (%) (Auto) 27.2 % Monocytes (%) (Auto) 8.8 % Eosinophils (%) (Auto) 1.4 % Basophils (%) (Auto) 0.6 % Neutrophils # (Auto) 3.92 K/uL (1.4-6.5) Lymphocytes # (Auto) 1.73 K/uL (1.2-3.4) Monocytes # (Auto) 0.56 K/uL (0.11-0.59) Eosinophils # (Auto) 0.09 K/uL (0-0.5) Basophils # (Auto) 0.04 K/uL (0-0.2) RDW Standard Deviation 48.4 fL (36.4-46.3) RDW Coefficient of Variation 13.8 % (11.5-14.5) Immature Granulocyte % (Auto) 0.3 % Immature Granulocyte # (Auto) 0.02 K/uL (0.00-0.02) Prothrombin Time 11.0 SECONDS (9.0-12.0) Prothromb Time International Ratio 1.0 (0.9-1.1) Activated Partial Thromboplast Time 37.9 SECONDS (21.0-31.0) Partial Thromboplastin Ratio 1.5 Anion Gap 10.0 mmol/L (3-11) Est Creatinine Clear Calc Drug Dose 29.1 ml/min Estimated GFR () 53.9 Estimated GFR (Non- 46.5 BUN/Creatinine Ratio 14.1 (10-20) Calcium Level 9.6 mg/dl (8.5-10.1) Magnesium Level 2.1 mg/dl (1.8-2.4) Total Bilirubin 0.9 mg/dl (0.2-1) Direct Bilirubin 0.2 mg/dl (0-0.2) Aspartate Amino Transf (AST/SGOT) 20 U/L (15-37) Alanine Aminotransferase (ALT/SGPT) 17 U/L (12-78) Alkaline Phosphatase 87 U/L (45-117) Total Creatine Kinase 53 U/L (26-192) Creatine Kinase MB 1.0 ng/ml (0.5-3.6) Creatine Kinase MB Ratio 1.9 (0-3.0) Troponin I < 0.015 ng/ml (0-0.045) Total Protein 7.3 gm/dl (6.4-8.2) Albumin 3.3 gm/dl (3.4-5.0) Lipase 127 U/L (73-393) Urine Color YELLOW Urine Appearance CLEAR (CLEAR) Urine pH 7.5 (4.5-7.5) Urine Specific [place] 1.009 (1.000-1.030) Urine Protein NEG (NEG) Urine Glucose (UA) NEG (NEG) Urine Ketones NEG (NEG) Urine Occult Blood NEG (NEG) Urine Nitrite NEG (NEG) Urine Bilirubin NEG (NEG) Urine Urobilinogen NEG (NEG) Urine Leukocyte Esterase NEG (NEG) Urine WBC (Auto) 1-5 /hpf (0-5) Urine RBC (Auto) 0-4 /hpf (0-4) Urine Hyaline Casts (Auto) 1-5 /lpf (0-5) Urine Epithelial Cells (Auto) >30 /lpf (0-5) Urine Bacteria (Auto) NEG (NEG) Laboratory results as stated above per my review. ECG Indication: SOB/dyspnea Rate (beats per minute): 74 Rhythm: atrial fibrillation Findings: no acute ischemic change, no ectopy ED Course 221: Previous medical records were reviewed. The patient was evaluated in room C9. A complete history and physical examination was performed. 0004: On reevaluation, the patient is resting comfortably. I discussed the results and findings with the patient. She verbalized agreement of the treatment plan. The patient was discharged home. Medical Decision Differential includes acute coronary syndrome, myocardial infarction, CVA, TIA, anemia, infection, pneumonia, UTI, pyelonephritis, poor nutrition, dehydration, electrolyte disturbance,hypoglycemia. This is an 89-year-old female who presents to the ED with a chief complaint of chills and the sensation that her heart was beating fast and hard. Symptoms occurred prior to arrival. She states that they have subsequently subsided. She has no specific complaints at this time. Her physical exam was unremarkable other than an irregular heart rate. EKG shows atrial fibrillation at a rate of 74. Her blood pressure was initially elevated on presentation. It remained somewhat elevated although improved. CBC and complete metabolic panel were normal, troponin was negative and lipase was negative. Chest x-ray did not show acute disease and a urine did not show infection. The patient did have recent admission and stroke evaluation including echocardiogram, carotid ultrasound and MRI of the brain at a hospital in [place] one week ago that was unremarkable. The patient is currently on Eliquis. She was told the results of the tests. She is felt to be stable for discharge. On reassessment, the patient is resting comfortable without symptoms. Medication Reconcilliation Current Medication List: was personally reviewed by me Blood Pressure Screening Patient's blood pressure: Elevated blood pressure Blood pressure disposition: Referred to PCP Impression Primary Impression: Palpitations Additional Impression: Chills Scribe Attestation The scribe's documentation has been prepared under my direction and personally reviewed by me in its entirety. I confirm that the note above accurately reflects all work, treatment, procedures, and medical decision making performed by me. Departure Information Dispostion Home / Self-Care Referrals Steven Urrutia M.D. (PCP) Forms IMPORTANT VISIT INFORMATION Patient Instructions My [facility] Additional Instructions Follow-up with Dr. Prather. Holter monitoring/event monitoring might be beneficial. Talk to your doctor about this. Return to the emergency department for worsening or new symptoms or any concerns. You have been examined and treated today on an emergency basis only. This is not a substitute for, or an effort to provide, complete comprehensive medical care. It is impossible to recognize and treat all injuries or illnesses in a single emergency department visit. It is therefore important that you follow up closely with your doctor. Call as soon as possible for an appointment. Problem Qualifiers
[2017-07-03 22:59] LABS: BASO % 0.6 %; BASO ABS # 0.04 K/uL (0-0.2); EOS % 1.4 %; EOS ABS # 0.09 K/uL (0-0.5); HEMATOCRIT 33.6 % (37-47); HEMOGLOBIN 11.8 g/dL (12.0-16.0); IG# 0.02 K/uL (0.00-0.02); LYMPH % 27.2 %; LYMPH ABS # 1.73 K/uL (1.2-3.4); MEAN CELL VOLUME 97.1 fL (80-100); MEAN CORPUSCULAR HEMOGLOBIN 34.1 pg (25-34); MEAN CORPUSCULAR HGB CONC 35.1 g/dl (32-36); MEAN PLATELET VOLUME 9.7 fL (7.4-10.4); MONO % 8.8 %; MONO ABS # 0.56 K/uL (0.11-0.59); NEUT % 61.7 %; NEUT ABS # 3.92 K/uL (1.4-6.5); PLATELET COUNT 241 K/uL (130-400); RED CELL DISTRIBUTION WIDTH CV 13.8 % (11.5-14.5); RED CELL DISTRIBUTION WIDTH SD 48.4 fL (36.4-46.3); WHITE BLOOD COUNT 6.36 K/uL (4.8-10.8)
--- NOTE | 2017-07-03 23:00 | DIAGNOSTIC IMAGING REPORT ---
CHEST ONE VIEW PORTABLE CLINICAL HISTORY: 89 years-old Female presenting with EVALUATE ALTERED MENTAL STATUS/WEAKNESS. TECHNIQUE: Portable upright AP view of the chest was obtained. COMPARISON: 06/15/2017. FINDINGS: Atherosclerosis of the aortic arch. Cardiac silhouette normal in size. Calcified mediastinal and/or hilar lymph nodes may be present. Lungs and pleural spaces clear. Osseous structures normal. Upper abdomen normal. IMPRESSION: 1. No acute cardiopulmonary disease. Electronically signed by: Steven Skinner M.D. 07/03/2017 10:59 PM Dictated Date/Time: 07/03/2017 10:57 PM
[2017-07-03 23:06] LABS: PTT PATIENT 37.9 SECONDS (21.0-31.0)
[2017-07-03 23:07] LABS: ALBUMIN 3.3 gm/dl (3.4-5.0); ALT/SGPT 17 U/L (12-78); AST/SGOT 20 U/L (15-37); BLOOD UREA NITROGEN 15 mg/dl (7-18); CALCIUM 9.6 mg/dl (8.5-10.1); CARBON DIOXIDE 21 mmol/L (21-32); CREATININE 1.06 mg/dl (0.60-1.20); GLUCOSE 102 mg/dl (70-99); LIPASE 127 U/L (73-393); POTASSIUM 3.7 mmol/L (3.5-5.1); SODIUM 136 mmol/L (136-145)
[2017-07-03 23:10] LABS: ALKALINE PHOSPHATASE 87 U/L (45-117); TOTAL PROTEIN 7.3 gm/dl (6.4-8.2)
[2017-07-04 00:05] VITALS: PULSE 85; O2SAT 97
[2017-07-04 00:09] VITALS: BP 165/113
== END 2017-07-04 00:25 | disposition home or self-care (01) ==
LOC: EDBD 21:24 → C.EDC 21:24
DX: R00.2 Palpitations (principal); R68.83 Chills (without fever); I48.91 Unspecified atrial fibrillation; E03.9 Hypothyroidism, unspecified; E87.1 Hypo-osmolality and hyponatremia; Z82.49 Family history of ischemic heart disease and other diseases of the circulatory system